=== PATIENT | female | born 1980 | race Caucasian/White ===

== ENCOUNTER → 2020-11-10 | Outpatient (CLI) | payer OTHER | LOC: KOH-I 14:24 | DX: R10.9 Unspecified abdominal pain (principal); R31.29 Other microscopic hematuria; E03.9 Hypothyroidism, unspecified | CPT/HCPCS: 74176 ==

== ENCOUNTER → 2022-05-17 | Outpatient (CLI) | payer OTHER | LOC: US 13:35 | DX: Z00.00 Encounter for general adult medical examination without abnormal findings (principal); E03.9 Hypothyroidism, unspecified; R31.29 Other microscopic hematuria; R10.9 Unspecified abdominal pain; R10.32 Left lower quadrant pain | CPT/HCPCS: 76856 ==